=== PATIENT | female | born 1980 | race Caucasian/White ===

== ENCOUNTER 2022-10-08 08:39 | Emergency (ER) | payer SELFPAY ==
[~2022-10-08] VITALS: Ht 172 cm; Wt 75.0 kg
[~2022-10-08 08:39] MED LIST: PREN1TAB39 PO
[2022-10-08] MEDS ORDERED: fentaNYL INJ 100 MCG/2 ML AMP IVP STA (08:59)
--- NOTE | 2022-10-08 09:03 | ED Abdominal Pain ---
General Chief Complaint: Abdominal/GI Problems Stated Complaint: ABD PAIN | NAUSEA Nursing Triage Note: PT STATES HAVING ABD PAIN JUST ABOVE THE UMBILICUS, CAN FEEL A KNOT THERE OFF AND ON FOR A COUPLE MONTHS, NORMAL BM YESTERDAY, DENIES URINARY ISSUES History of Present Illness Date Seen by Provider: Oct 08, 2022 Time Seen by Provider: 09:02 Initial Comments 42-year-old female presents with pain and a "knot" that presents right above the umbilicus. She reports has been there for 3+ months that pain will tend to come and go. She reports that today she has just had a significant increase amount of pain. She did have a normal bowel movement yesterday. Denies any nausea or vomiting. Allergies and Home Medications Allergies Coded Allergies: No Known Drug Allergies (Unverified , 01/06/11) Patient Home Medication List Home Medication List Reviewed: Yes Vits W-Ca,Fe,Fa(<1MG) () 1 Each Tablet, 1 EACH PO DAILY, (Reported) Entered as Reported by: FELIBERTO ESPINOSA on 01/06/111832 Review of Systems Review of Systems Constitutional: see HPI EENTM: No Symptoms Reported Cardiovascular: No Symptoms Reported Gastrointestinal: See HPI, Abdominal Pain Genitourinary: No Symptoms Reported Musculoskeletal: no symptoms reported Skin: no symptoms reported Psychiatric/Neurological: No Symptoms Reported Past Ecpwvse-Dadhrt-Linhxj Hx Patient Social History Tobacco Use?: No Substance use?: No Alcohol Use?: No Past Medical History Last Menstrual Period: Sep 14, 2022 Physical Exam Vital Signs Vital Signs - First Documented 10/08/22 08:52 Temp 36.7 Pulse 60 Resp 20 B/P (MAP) 126/75 (92) Pulse Ox 98 O2 Delivery Room Air Capillary Refill : Less Than 3 Seconds Height/Weight/BMI Height: '" Weight: lbs. oz. kg; 25.00 BMI Method: General Appearance: WD/WN, no apparent distress Respiratory: chest non-tender, lungs clear Cardiovascular: normal peripheral pulses, regular rate, rhythm Gastrointestinal: soft, tenderness, hernia (periumbilical ) Extremities: normal range of motion, non-tender Neurologic/Psychiatric: alert, normal mood/affect, oriented x 3 Skin: normal color, warm/dry Focused Exam Lactate Level 10/08/22 09:05: Lactic Acid Level 1.36 Lactic Acid Level Laboratory Tests Test 10/08/22 09:05 Lactic Acid Level 1.36 MMOL/L (0.50-2.00) Progress/Results/Core Measures Results/Orders Lab Results Laboratory Tests Test 10/08/22 09:05 10/08/22 09:10 Range/Units White Blood Count 6.7 4.3-11.0 10^3/uL Red Blood Count 4.86 3.80-5.11 10^6/uL Hemoglobin 13.7 11.5-16.0 g/dL Hematocrit 42 35-52 % Mean Corpuscular Volume 87 80-99 fL Mean Corpuscular Hemoglobin 28 25-34 pg Mean Corpuscular Hemoglobin Concent 32 32-36 g/dL Red Cell Distribution Width 13.0 10.0-14.5 % Platelet Count 265 130-400 10^3/uL Mean Platelet Volume 10.2 9.0-12.2 fL Immature Granulocyte % (Auto) 1 % Neutrophils (%) (Auto) 79 H 42-75 % Lymphocytes (%) (Auto) 16 12-44 % Monocytes (%) (Auto) 4 0-12 % Eosinophils (%) (Auto) 1 0-10 % Basophils (%) (Auto) 0 0-10 % Neutrophils # (Auto) 5.3 1.8-7.8 10^3/uL Lymphocytes # (Auto) 1.1 1.0-4.0 10^3/uL Monocytes # (Auto) 0.3 0.0-1.0 10^3/uL Eosinophils # (Auto) 0.0 0.0-0.3 10^3/uL Basophils # (Auto) 0.0 0.0-0.1 10^3/uL Immature Granulocyte # (Auto) 0.0 0.0-0.1 10^3/uL Sodium Level 137 135-145 MMOL/L Potassium Level 3.9 3.6-5.0 MMOL/L Chloride Level 106 98-107 MMOL/L Carbon Dioxide Level 22 21-32 MMOL/L Anion Gap 9 5-14 MMOL/L Blood Urea Nitrogen 19 H 7-18 MG/DL Creatinine 0.79 0.60-1.30 MG/DL Estimat Glomerular Filtration Rate 96 BUN/Creatinine Ratio 24 Glucose Level 153 H 70-105 MG/DL Lactic Acid Level 1.36 0.50-2.00 MMOL/L Calcium Level 9.1 8.5-10.1 MG/DL Corrected Calcium 9.3 8.5-10.1 MG/DL Magnesium Level 1.9 1.6-2.4 MG/DL Total Bilirubin 0.3 0.1-1.0 MG/DL Aspartate Amino Transf (AST/SGOT) 18 5-34 U/L Alanine Aminotransferase (ALT/SGPT) 19 0-55 U/L Alkaline Phosphatase 37 L 40-136 U/L Total Protein 7.6 6.4-8.2 GM/DL Albumin 3.8 3.2-4.5 GM/DL Lipase 24 8-78 U/L Urine Color YELLOW Urine Clarity SL CLOUDY Urine pH 6.0 5-9 Urine Specific [place] 1.025 H 1.016-1.022 Urine Protein NEGATIVE NEGATIVE Urine Glucose (UA) NEGATIVE NEGATIVE Urine Ketones NEGATIVE NEGATIVE Urine Nitrite NEGATIVE NEGATIVE Urine Bilirubin NEGATIVE NEGATIVE Urine Urobilinogen 1.0 < = 1.0 MG/DL Urine Leukocyte Esterase NEGATIVE NEGATIVE Urine RBC (Auto) NEGATIVE NEGATIVE Urine RBC NONE /HPF Urine WBC 0-2 /HPF Urine Squamous Epithelial Cells 2-5 /HPF Urine Crystals PRESENT H /LPF Urine Amorphous Sediment LARGE ELLEN URATES H /LPF Urine Bacteria NEGATIVE /HPF Urine Casts NONE /LPF Urine Mucus LARGE H /LPF Urine Culture Indicated NO Urine Test NEGATIVE NEGATIVE My Orders Orders - PETTYFAHAD L DO Cbc With Automated Diff (10/08/22 08:59) Comprehensive Metabolic Panel (10/08/22 08:59) Lactic Acid Analyzer (10/08/22 08:59) Lipase (10/08/22 08:59) Magnesium (10/08/22 08:59) Fentanyl Inj (Sublimaze Injection) (10/08/22 08:59) Hcg,Qualitative Urine (10/08/22 08:59) Ua Culture If Indicated (10/08/22 08:59) Ct Abdomen/Pelvis W (10/08/22 08:59) Iohexol Injection (Omnipaque 350 Mg/Ml 1 (10/08/22 09:30) Received Contrast (Hold Metformin- Contr (10/08/22 09:30) Ns (Ivpb) (Sodium Chloride 0.9% Ivpb Bag (10/08/22 09:30) Medications Given in ED Current Medications Medications Dose Ordered Sig/Malena Route Start Time Stop Time Status Last Admin Dose Admin Iohexol 100 ml ONCE ONCE IV 10/08/22 09:30 10/08/22 09:31 DC 10/08/22 09:38 80 ML Sodium Chloride 100 ml ONCE ONCE IV 10/08/22 09:30 10/08/22 09:31 DC 10/08/22 09:38 80 ML Vital Signs/I&O 10/08/22 10/08/22 08:52 10:31 Temp 36.7 36.7 Pulse 60 60 Resp 20 20 B/P (MAP) 126/75 (92) 126/75 Pulse Ox 98 98 O2 Delivery Room Air Room Air Blood Pressure Mean: 92 Progress Progress Note : Progress Note Multiple studies were ordered reviewed and interpreted by me with no acute findings. Obtain a CT abdomen pelvis to evaluate for incarcerated hernia. Based on CT it does appear that was incarcerated. While in the ER I was able to reduce it and she did have pain relief. Called and discussed with general surgery on-call Dr. Bardales. Patient to follow-up with him upon discharge in his office and they will reevaluate her and plan further outpatient management. Patient was stable upon discharge Diagnostic Imaging Diagonstic Imaging: CT Plain Films/CT/US/NM/MRI: abdomen, pelvis Comments Draft Date of Exam:10/08/22 CT ABDOMEN/PELVIS W EXAMINATION: CT abdomen and pelvis with intravenous contrast. TECHNIQUE: Multiple contiguous axial images were obtained through the abdomen and pelvis after the uneventful administration of intravenous contrast. All CT scans use one or more of the following dose optimizing techniques: automated exposure control, MA and/or KvP adjustment based on patient size and exam type or iterative reconstruction. HISTORY: Abdominal pain, possible hernia COMPARISON: None available. FINDINGS: Limited views of the lower thorax are unremarkable. There is a hemangioma in segment 7 of the liver. No suspicious liver lesion. There is no biliary ductal dilation. Gallbladder is normal. Pancreas is normal. Spleen is normal. Adrenal glands are normal. The kidneys are normal. There is no hydronephrosis. Urinary bladder is normal. There is a periumbilical hernia containing a loop of small bowel. The loop of bowel within the hernia sac is short segment but is dilated. Upstream bowel is not particularly dilated. There is minimal stranding within the hernia sac. No free fluid or air. No abdominal or pelvic lymphadenopathy. Aorta is normal in caliber without aneurysm. There are no suspicious osseus lesions. IMPRESSION: 1. There is a short segment of small bowel within a periumbilical hernia. The bowel within the hernia sac is dilated and there is minimal surrounding stranding concerning for incarceration, correlate with physical exam. Departure Impression Primary Impression: Periumbilical hernia Disposition: HOME, SELF-CARE Condition: Stable Departure-Patient Inst. Referrals: MESSI BARDALES MD NO,LOCAL PHYSICIAN (PCP) Primary Care Physician Patient Instructions: Abdominal wall hernias Add. Discharge Instructions: Follow-up with Dr. Bardales's office upon discharge from the emergency room. Their office is located in [address] in [facility]. All discharge instructions reviewed with patient and/or family. Voiced understanding. FAHAD PETTY DO Oct 08, 2022 09:03
[2022-10-08 09:12] LABS: BASOPHILS % (AUTO) 0 % (0-10); EOSINOPHILS % (AUTO) 1 % (0-10); HEMATOCRIT 42 % (35-52); HEMOGLOBIN 13.7 g/dL (11.5-16.0); LYMPHOCYTES # (AUTO) 1.1 10^3/uL (1.0-4.0); LYMPHOCYTES % (AUTO) 16 % (12-44); MEAN CORPUSCULAR HEMOGLOBIN 28 pg (25-34); MEAN CORPUSCULAR HGB CONC 32 g/dL (32-36); MEAN CORPUSCULAR VOLUME 87 fL (80-99); MEAN PLATELET VOLUME 10.2 fL (9.0-12.2); MONOCYTES # (AUTO) 0.3 10^3/uL (0.0-1.0); MONOCYTES % (AUTO) 4 % (0-12); NEUTROPHILS # (AUTO) 5.3 10^3/uL (1.8-7.8); NEUTROPHILS % (AUTO) 79 % (42-75); PLATELET COUNT 265 10^3/uL (130-400); WHITE BLOOD COUNT 6.7 10^3/uL (4.3-11.0)
[2022-10-08 09:19] LABS: BILIRUBIN,URINE NEGATIVE (NEGATIVE); CLARITY,URINE SL CLOUDY; COLOR,URINE YELLOW; GLUCOSE, URINE (UA) NEGATIVE (NEGATIVE); KETONES,URINE NEGATIVE (NEGATIVE); LEUKOCYTE ESTERASE ,URINE NEGATIVE (NEGATIVE); NITRITE,URINE NEGATIVE (NEGATIVE); PROTEIN,URINE NEGATIVE (NEGATIVE)
[2022-10-08 09:25] LABS: ALBUMIN 3.8 GM/DL (3.2-4.5); POTASSIUM 3.9 MMOL/L (3.6-5.0)
[2022-10-08 09:27] LABS: CALCIUM 9.1 MG/DL (8.5-10.1)
[2022-10-08 09:28] LABS: TOTAL PROTEIN 7.6 GM/DL (6.4-8.2)
[2022-10-08 09:29] LABS: BILIRUBIN,TOTAL 0.3 MG/DL (0.1-1.0)
[2022-10-08] MEDS ORDERED: NS 100 ML (IVPB) BAG IV ONE (09:30)
[2022-10-08] MEDS ORDERED: HOLD METFORMIN - RECEIVED CONTRAST 20 ML VIAL IV SCH (09:30)
[2022-10-08] MEDS ORDERED: IOHEXOL 350 MG/ML 100 ML (OMNIPAQUE 350) VIAL IV ONE (09:30)
[2022-10-08 09:31] LABS: CREATININE SERUM 0.79 MG/DL (0.60-1.30)
[2022-10-08 09:34] LABS: MAGNESIUM 1.9 MG/DL (1.6-2.4)
[2022-10-08 09:35] LABS: AMORPHOUS SEDIMENT,UR LARGE AMOR URATES /LPF; BACTERIA,URINE NEGATIVE /HPF; WBC,URINE 0-2 /HPF
--- NOTE | 2022-10-08 09:55 | Diagnostic Imaging Report ---
EXAMINATION: CT abdomen and pelvis with intravenous contrast. TECHNIQUE: Multiple contiguous axial images were obtained through the abdomen and pelvis after the uneventful administration of intravenous contrast. All CT scans use one or more of the following dose optimizing techniques: automated exposure control, MA and/or KvP adjustment based on patient size and exam type or iterative reconstruction. HISTORY: Abdominal pain, possible hernia COMPARISON: None available. FINDINGS: Limited views of the lower thorax are unremarkable. There is a hemangioma in segment 7 of the liver. No suspicious liver lesion. There is no biliary ductal dilation. Gallbladder is normal. Pancreas is normal. Spleen is normal. Adrenal glands are normal. The kidneys are normal. There is no hydronephrosis. Urinary bladder is normal. There is a periumbilical hernia containing a loop of small bowel. The loop of bowel within the hernia sac is short segment but is dilated. Upstream bowel is not particularly dilated. There is minimal stranding within the hernia sac. No free fluid or air. No abdominal or pelvic lymphadenopathy. Aorta is normal in caliber without aneurysm. There are no suspicious osseus lesions. IMPRESSION: 1. There is a short segment of small bowel within a periumbilical hernia. The bowel within the hernia sac is dilated and there is minimal surrounding stranding concerning for incarceration, correlate with physical exam. Dictated by: Dictated on workstation # [id number]
[2022-10-08 10:31] VITALS: BP 126/75
[2022-10-09] MEDS ORDERED: HYDR-3817 PO (11:19)
== END 2022-10-08 10:31 | disposition home or self-care (01) ==
LOC: EDUNIT# 08:39 → ER 08:42
DX: K42.9 Umbilical hernia without obstruction or gangrene (principal)
CPT/HCPCS: 36415; 74177; 80053; 81000; 83605; 83690; 83735; 84703; 85025

== ENCOUNTER 2022-10-08 12:07 | Outpatient (CLI) | payer SELFPAY ==
[~2022-10-08] VITALS: Ht 172.7 cm; Wt 75.0 kg
[2022-10-09] MEDS ORDERED: HYDR-3817 PO (11:19)
== END 2022-10-08 12:49 ==
LOC: PREOP 12:07
PROVIDERS: ATTEND Surgery
DX: Z01.818 Encounter for other preprocedural examination (principal)